=== PATIENT | male | born 1950 | race Caucasian/White ===

== ENCOUNTER 2024-09-19 13:29 | Observation (INO) | payer OTHER, MEDICARE ==
[~2024-09-19] VITALS: Ht 177.8 cm; Wt 121.7 kg
[2024-09-19] MEDS ORDERED: HYDROmorphone HCL 1 MG/ML SYR IV PRN ×3 (13:45→15:30)
[2024-09-19] MEDS ORDERED: ondansetron HCL 4 MG/2 ML VIAL IV ONE (13:45)
[2024-09-19 13:46] LABS: BASOPHILS 0.5 % (0-2); EOSINOPHILS 0.1 % (0-6); HEMATOCRIT 41.7 % (35.0-50.0); HEMOGLOBIN 14.1 g/dL (12.0-18.0); LYMPHOCYTES 8.8 % (24-44); MCH 32.1 (27-36); MCHC 33.7 g/dl (30-36); MCV 95.4 fl (81-99); MONOCYTES 4.5 % (0-12); NEUTROPHILS 86.1 % (39-80); PLATELET COUNT 163 K/uL (140-440); RBC 4.38 M/ul (4.3-5.7); RDW 12.9 (10.5-15.0)
[2024-09-19 14:06] LABS: ALBUMIN/GLOBULIN RATIO 1.33 (1.1-2.4); ANION GAP 15.8 (7-21); BILIRUBIN, TOTAL 0.7 ng/dL (0.2-1.0); BUN/CREATININE RATIO 13.23 (6.0-28.6); CALCIUM 9.2 mg/dL (8.5-10.1); CREATININE, SERUM 1.36 mg/dL (0.70-1.30); POTASSIUM 3.8 mmol/L (3.5-5.1)
[2024-09-19] MEDS ORDERED: LACTATED RINGER'S 1,000 ML IV PRN (14:15)
[2024-09-19] MEDS ORDERED: DIPHTH,PERTUSS(ACELL),TET VAC 0.5 ML SYRINGE IM ONE ×2 (14:15→14:45)
[2024-09-19 14:34] LABS: ABO O; ANTIBODY SCREEN NEGATIVE; RH POSITIVE
[2024-09-19] MEDS ORDERED: LACTATED RINGER'S 1,000 ML IV SCH (14:45)
[2024-09-19] MEDS ORDERED: ondansetron HCL 4 MG/2 ML VIAL IV PRN ×2 (14:45→15:30)
[2024-09-19] MEDS ORDERED: DEXTROSE 5% - LACTATED RINGERS 1,000 ML IV SCH (15:30)
[2024-09-19] MEDS ORDERED: PROCHLORPERAZINE EDISYLATE 10 MG/2 ML VIAL IV PRN (15:30)
[2024-09-19] MEDS ORDERED: PANTOPRAZOLE SODIUM 40 MG TABEC PO SCH (15:33)
[2024-09-19] MEDS ORDERED: ACETAMINOPHEN 500 MG TAB PO PRN (15:45)
[2024-09-19] MEDS ORDERED: OXYCODONE HCL 5 MG TAB PO PRN (15:45)
[2024-09-19] MEDS ORDERED: IBUPROFEN 800 MG TAB PO PRN (15:45)
[2024-09-19 16:05] VITALS: BP 143/67
[2024-09-19 17:00] VITALS: BP 143/67
--- NOTE | 2024-09-19 17:02 | NUR ---
PT ARRIVED TO FLOOR VIA STRETCHER WITH RN AT BEDSIDE. TELEMETRY PLACE ON PATIENT. IMMOBILIZER TO (L) KNEE, PT INFORMED BEDREST UNTIL IMAGING/DR. EATON HAS TIME TO CONSULT AND SEE PATIENT. PICTURES TAKEN OF WOUNDS, CONSENTS SIGNED AND IN PATIENT CHART. PT C/O OF VERY MINIMAL PAIN 12/17, OFFERED PAIN MEDS OXYCODONE/TYLENOL AND REFUSED ANY AT THIS TIME. VS STABLE, REMAINS ON CONTINUOUS CPOX AT THIS TIME. BED ALARM FOR SAFETY. URINAL AT BEDSIDE. CALL LIGHT WITHIN REACH, ALL PT CARE NEEDS MET AT THIS TIME
[2024-09-19 18:11] VITALS: BP 129/56
--- NOTE | 2024-09-19 18:40 | NUR ---
DR. EATON NOTIFIED OF CT RESULTS AND UPDATED PT STATUS. ORDERS RECEIVED FOR WEIGHT BEARING TOLERATED, CRYO CUFF TO LEFT KNEE TUCKED IN TO IMMOBILIZER. IMMOBILIZER TO BE BETWEEN 0-90 DEGREES. ORDERS ENTERED.
--- NOTE | 2024-09-19 18:46 | NUR ---
PATIENT IN BED AT THIS TIME. BUSINESS MANAGEMENT ANALYST CHARTED VITALS AND I&O'S. CALL LIGHT WITHIN REACH, NO FURTHER NEEDS AT THIS TIME.
--- NOTE | 2024-09-19 18:48 | NUR ---
UPON ASSESSMENT, NOTICED A FLAPPER IN (R) EYE, APPEARS TO BE A PIECE OF TISSUE. PT STATES HIS VISION IS NOT AFFECTED, NO PAIN/DRAINAGE. CALL TO DR. SANDOVAL TO INFORM, LEFT VM AND AWAITING RETURN CALL.
--- NOTE | 2024-09-19 19:10 | NUR ---
REPORT RECEIVED FROM ELZA VIGIL. BOARD UPDATED. pt RESTING IN THE BED. pt DENIES ANY NEEDS AT THIS TIME. CALL LIGHT WITHIN REACH.
--- NOTE | 2024-09-19 19:37 | NUR ---
RETURN CALL FROM DR. SANDOVAL, INFORMED OF (R) EYE FLAPPER. HE STATES CURRENTY NO NEW ORDERS, PT WILL MOST LIKELY NEED TO FOLLOW-UP OUPATIENT WITH EYE DOCTOR. PT INFORMED AND UNDERSTANDS, VERBALIZED UNDERSTANDING.
[2024-09-19] MEDS ORDERED: DOCUSATE SODIUM 100 MG CAP PO SCH (21:00)
[2024-09-19 21:08] VITALS: BP 147/67
[2024-09-19 21:15] VITALS: BP 147/67
--- NOTE | 2024-09-19 21:15 | NUR ---
ASSESSMENT AND VITAL SIGNS DONE. pt C/O 01/14 PAIN. PRN PAIN MEDICATION ADMINISTERED. CRYO CUFF HAS ICE. SCD'S ON. IV FLUSHED, WNL. IVF INFUSING PER ORDER. SCHEDULED MEDS ADMINISTERED. pt DENIES ANY OTHER NEEDS AT THIS TIME. CALL LIGHT WITHIN REACH.
--- NOTE | 2024-09-19 23:00 | NUR ---
pt CPOX ALARMING. THIS RN IN RM TO CHECK ON pt. pt STATES HE IS DOING OK AND IS SATTING AT 95% ON RA. NO OTHER NEEDS AT THIS TIME. CALL LIGHT WITHIN REACH.
[2024-09-20 01:30] VITALS: BP 153/71
[2024-09-20 01:31] VITALS: BP 153/71
--- NOTE | 2024-09-20 02:28 | NUR ---
CALL LIGHT ANSWERED. PT STATED THAT HE HAD VOIDED FOR THE URINE SAMPLE. VB NET DEVELOPER MEASURED OUTPUT AND COLLECTED SAMPLE. PT STATES NO FURTHER NEEDS AT THIS TIME. CALL LIGHT WITHIN REACH. URINE SAMPLE SENT TO LAB. RN NOTIFED.
[2024-09-20 02:31] LABS: BILIRUBIN, URINE NEGATIVE (negative); BLOOD/HGB, URINE NEGATIVE (Negative); KETONE, URINE NEGATIVE (Negative); LEUK ESTERASE, URINE NEGATIVE (negative); NITRITE, URINE NEGATIVE (negative); PH, URINE 6.5 (5-7)
[2024-09-20 04:43] VITALS: BP 136/55
[2024-09-20 04:49] VITALS: BP 136/55
--- NOTE | 2024-09-20 04:53 | NUR ---
pt RESTING IN THE BED WITH EYES CLOSED. CRYO CUFF FILLED. pt WOKE UP NEURO CHECK DONE. ASSESSMENT AND VITAL SIGNS DONE. pt DENIES ANY OTHER NEEDS AT THIS TIME. CALL LIGHT WITHIN REACH.
--- NOTE | 2024-09-20 05:08 | NUR ---
pt RESTED THROUGH OUT THE NIGHT. pt KNEE IMMOBILIZED THROUGH OUT THE NIGHT. FOOT PUMP ON LEFT FOOT AND LEG SCD ON.
[2024-09-20 05:27] LABS: BASOPHILS 0.4 % (0-2); EOSINOPHILS 0.6 % (0-6); HEMATOCRIT 37.5 % (35.0-50.0); HEMOGLOBIN 12.8 g/dL (12.0-18.0); LYMPHOCYTES 24.3 % (24-44); MCH 32.5 (27-36); MCV 95.4 fl (81-99); NEUTROPHILS 66.7 % (39-80); PLATELET COUNT 143 K/uL (140-440); RBC 3.93 M/ul (4.3-5.7); RDW 13.1 (10.5-15.0)
[2024-09-20 05:45] LABS: ALBUMIN 3.3 g/dL (3.4-5.0); ALBUMIN/GLOBULIN RATIO 1.1 (1.1-2.4); ANION GAP 13.2 (7-21); BILIRUBIN, TOTAL 1.2 ng/dL (0.2-1.0); CALCIUM 8.8 mg/dL (8.5-10.1); CREATININE, SERUM 1.2 mg/dL (0.70-1.30); MAGNESIUM 1.9 mg/dL (1.8-2.4); PHOSPHORUS, INORGANIC 3.7 mg/dL (2.5-4.9); POTASSIUM 4.2 mmol/L (3.5-5.1); PROTEIN, TOTAL 6.3 g/dL (6.4-8.2)
[2024-09-20] MEDS ORDERED: HYDROCODONE/APAP 10/325 1 TAB PO PRN (06:45)
--- NOTE | 2024-09-20 07:18 | NUR ---
PT BACK TO [facility] FROM [facility]. CALL LIGHT WITHIN REACH, SCDS ON.
--- NOTE | 2024-09-20 07:30 | NUR ---
UR CLINICAL REVIEW: [facility] [place] FRACTURE FOR ADMIT. MEETS DC CRITERIA THIS AM. AWARE AND DISCHARGING PATIENT TODAY. DOMONIQUE TPL OBS 09/19/24 @ 1534 ORDER MATCHES REG PLAN TO DC TO HOME. 09/21/24
--- NOTE | 2024-09-20 08:15 | NUR ---
PT RESTING IN BED. STATES PAIN TO RIBS, LLE, AND NECK 3/10 AND TOLERABLE AT THIS TIME. PT EDUCATED ON IMPORTANCE OF USING IS INSTRUCTED. NO REQUESTS AT THIS TIME.
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
--- NOTE | 2024-09-20 08:38 | NUR ---
PATIENT IN BED AT THIS TIME. PUNCHBOARD STUFFER WENT INTO PATIENTS ROOM FOR HOURLY ROUNDS. CALL LIGHT WITHIN REACH, NO FURTHER NEEDS AT THIS TIME.
--- NOTE | 2024-09-20 09:07 | NUR ---
PT RESTING IN BED TALKING TO FIRE LIEUTENANT AND FAMILY. CPOX ON, O2 SAT 96% ON RA.
--- NOTE | 2024-09-20 09:30 | NUR ---
Spoke with pt, , and multiple family members. Pt plans on dc today. He has a walking boot in place. Pt has apcp in [place] and family will make a fu appt and contact ortho in [place]. Pt denies needs. He states he can walk. Discussed his RX is in the chart. He would prefer to not have opioids. We discussed it might be best to have them filled in [place] and not use, but have them if needed. He will have a [address] [place] Family and pt deny other needs. Plan to dc when another family member arrives to drive pt.
--- NOTE | 2024-09-20 09:40 | NUR ---
BOOT APPLIED TO LLE ORDERED. PT UP WITH ASSISTANCE AMBULATING IN ROOM, TOLERATED WELL BUT SLIGHTLY UNSTEADY DUE TO "CLUNKY BOOT" PT STATES. PT WILL USE HIS WALKER THAT HE ALREADY HAS AT HOME WHEN HE GETS HOME. PT SITTING UP AT SIDE OF BED WITH CALL LIGHT WITHIN REACH. AND FAMILY AT BEDSIDE.
[2024-09-20 10:10] VITALS: BP 154/72
[2024-09-20 10:11] VITALS: BP 124/60
--- NOTE | 2024-09-20 10:52 | NUR ---
PT NOT AVAILABLE FOR VISIT. PROVIDED PRAYER.
[2024-09-20] MEDS ORDERED: ZESTRIL20 MG PO (11:35)
[2024-09-20] MEDS ORDERED: HYDROCHLOROTHIA25 MG PO (11:36)
[2024-09-20] MEDS ORDERED: PREVACID30 MG PO (11:36)
[2024-09-20] MEDS ORDERED: NORVASC10 MG PO (11:40)
[2024-09-20] MEDS ORDERED: LIPITOR20 MG PO (11:40)
--- NOTE | 2024-09-20 11:43 | NUR ---
PT CALL LIGHT ON, HE IS C/O 6/10 NECK PAIN AT THIS TIME. ICE PACK PROVIDED. PT REQUESTING HIS DISCHARGE INFORMATION, PHARMACY ARRIVED IN ROOM. WILL PRINT PACKET FOR PRIMARY RN AT THIS TIME.
[2024-09-20] MEDS ORDERED: HYDROCODON-ACE1 EAC8 PO (11:46)
--- NOTE | 2024-09-20 12:16 | NUR ---
MED REC COMPLETE
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
== END 2024-09-20 12:33 | disposition home or self-care (01) ==
LOC: ED 13:29 → MS 13:31
PROVIDERS: Emergency Medicine; ADMIT Colon & Rectal Surgery; ATTEND Colon & Rectal Surgery
DX: S82.422A Displaced transverse fracture of shaft of left fibula, initial encounter for closed fracture (principal); S22.42XA Multiple fractures of ribs, left side, initial encounter for closed fracture; S92.415A Nondisplaced fracture of proximal phalanx of left great toe, initial encounter for closed fracture; S00.211A Abrasion of right eyelid and periocular area, initial encounter; S60.222A Contusion of left hand, initial encounter; S60.221A Contusion of right hand, initial encounter; S16.1XXA Strain of muscle, fascia and tendon at neck level, initial encounter; V59.9XXA Occupant (driver) (passenger) of pick-up truck or van injured in unspecified traffic accident, initial encounter; I10 Essential (primary) hypertension; K21.9 Gastro-esophageal reflux disease without esophagitis; E78.00 Pure hypercholesterolemia, unspecified; E66.9 Obesity, unspecified; Z88.5 Allergy status to narcotic agent; Z79.899 Other long term (current) drug therapy; Z68.38 Body mass index [BMI] 38.0-38.9, adult
CPT/HCPCS: 36415; 71045; 71260; 72125; 73130; 73590; 73610; 73630; 73700; 74177; 80053; 81003; 83735; 84100; 85025; 85060; 86850; 86900; 86901; 90715; 94762; A9270; G0480; J1171; J2405; J7121; Q9967